=== PATIENT | female | born 1995 | race Two or more races ===

== ENCOUNTER 2024-10-02 00:56 | Emergency (ER) | payer OTHER ==
[~2024-10-02] VITALS: Ht 162.6 cm; Wt 92.7 kg
--- NOTE | 2024-10-02 01:13 | ED.PDOC ---
BUTT TRIMMER HPI Comments 29-year-old female who came to ER for vaginal bleeding. Patient is a , delivered full term via vaginal delivery last September 17. No complications noted. Patient was apparently well until 2 hours prior to arrival, when she had an episode of profuse vaginal bleeding with clots, associated with the abdominal cramping, followed by generalized weakness and dizziness. 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 Family History Family History: Reviewed,noncontributory to illness Social History Smoker: Non-Smoker Alcohol: Denies ETOH Use Drugs: Denies Drug Use Lives In: Home Constitutional: denies: chills, diaphoresis, fatigue, fever, malaise, sweats, weakness, others EENTM: denies: blurred vision, double vision, ear bleeding, ear discharge, ear drainage, ear pain, ear ringing, eye pain, eye redness, hearing loss, mouth pain, mouth swelling, nasal discharge, nose bleeding, nose congestion, nose pain, photophobia, tearing, throat pain, throat swelling, voice changes, others Respiratory: denies: cough, hemoptysis, orthopnea, SOB at rest, shortness of breath, SOB with excertion, stridor, wheezing, others Cardiovascular: denies: chest pain, dizzy spells, diaphoresis, Dyspnea on exertion, edema, irregular heart beat, left arm pain, lightheadedness, palpitations, PND, syncope, others Gastrointestinal: reports: abdominal pain; denies: abdomen distended, blood streaked bowels, constipated, diarrhea, dysphagia, difficulty swallowing, hematemesis, melena, nausea, poor appetite, poor fluid intake, rectal bleeding, rectal pain, vomiting, others Genitourinary: reports: abnormal vagina bleeding; denies: burning, dyspareunia, dysuria, flank pain, frequency, hematuria, incontinence, pain, , vagina discharge, urgency, others Neurological: reports: dizziness, weakness; denies: fainting, headache, left sided numbness, left sided weakness, numbness, paresthesia, pre-existing deficit, right sided numbness, right sided weakness, seizure, speech problems, tingling, tremors, others Musculoskeletal: denies: back pain, gout, joint pain, joint swelling, muscle pain, muscle stiffness, neck pain, others Integumetry: denies: bruises, change in color, change in hair/nails, dryness, laceration, lesions, lumps, rash, wounds, others Allergic/Immunocompromised: denies: Difficulty Healing, Frequent Infections, Hives, Itching, others Hematologic/Lymphatic: denies: anemia, blood clots, easy bleeding, easy bruising, swollen glands, others Endocrine: denies: excessive hunger, excessive sweating, excessive thirst, excessive urination, flushing, intolerance to cold, intolerance to heat, unexplained weight gain, unexplained weight loss, others Psychiatric: denies: anxiety, bipolar disorder, depression, hopeless, panic disorder, schizophrenia, sleepless, suicidal, others Physical Exam General Appearance: No Apparent Distress, Normal HEENT: Normal ENT Inspection, Pharynx Normal, TMs Normal Neck: Full Range of Motion, Non-Tender, Normal, Normal Inspection Respiratory: Chest Non-Tender, Lungs Clear, No Accessory Muscle Use, No Respiratory Distress, Normal Breath Sounds Cardiovascular: No Edema, No JVD, No Murmur, No Gallop, Normal Peripheral Pulses, Regular Rate/Rhythm Breast Exam: Deferred Gastrointestinal: No Organomegaly, Non Tender, No Pulsatile Mass, Normal Bowel Sounds, Soft Genitalia: Deferred Pelvic: Deferred Rectal: Deferred Extremities: No calf tenderness, Normal capillary refill, Normal inspection, Normal range of motion, Non-tender, No pedal edema Musculoskeletal : Apperance: Normal Neurologic: Alert, school psychologist assistant II-XII nml as Tested, No Motor Deficits, Normal Affect, Normal Mood, No Sensory Deficits Cerebellar Function: Normal Reflexes: Normal Skin: Dry, Normal Color, Warm Lymphatic: No Adenopathy Was a procedure done? Was a procedure done?: No Differential Diagnosis (HOGSHEAD HEAD MATCHER) Vaginal Bleeding: Blood Loss Anemia, Menorrhagia, Menometrorrhagia, Menstrual Bleeding, UTI X-Ray, Labs, Meds, VS Vital Signs Date Time Temp Pulse Resp B/P (MAP) Pulse Ox O2 Delivery O2 Flow Rate FiO2 10/02/24 02:02 98.0 63 20 126/77 (93) 98 98.0 10/02/24 01:12 97.8 92 20 145/101 97 97.8 Lab Test 10/02/24 01:53 Range/Units White Blood Count 7.1 4.4-10.8 10^3/uL Red Blood Count 4.52 4.0-5.20 10^6/uL Hemoglobin 11.4 L 12.2-16.2 g/dL Hematocrit 35.3 L 36.0-46.0 % Mean Corpuscular Volume 78.2 L 80.0-100.0 fL Mean Corpuscular Hemoglobin 25.3 L 28.0-32.0 pg Mean Corpuscular Hemoglobin Concent 32.4 32.0-36.0 g/dL Red Cell Distribution Width 16.0 H 11.8-14.3 % Platelet Count 254 140-450 10^3/uL Mean Platelet Volume 10.2 6.9-10.8 fL Neutrophils (%) (Auto) 57.2 37.0-80.0 % Lymphocytes (%) (Auto) 34.8 10.0-50.0 % Monocytes (%) (Auto) 5.8 0.0-12.0 % Eosinophils (%) (Auto) 1.5 0.0-7.0 % Basophils (%) (Auto) 0.7 0.0-2.0 % Neutrophils # (Auto) 4.0 1.6-8.6 10 ^3/uL Lymphocytes # (Auto) 2.5 0.4-5.4 10 ^3/uL Monocytes # (Auto) 0.4 0-1.3 10 ^3/uL Eosinophils # (Auto) 0.1 0-0.8 10 ^3/uL Basophils # (Auto) 0 0-0.2 10 ^3/uL Nucleated Red Blood Cells 0.0 % Prothrombin Time 10.5 9.3-11.8 sec Prothrombin Time INR 0.99 0.9-1.15 Activated Partial Thromboplast Time 27.5 24.5-34.5 SEC Sodium Level 144 136-145 mmol/L Potassium Level 3.7 3.5-5.1 mmol/L Chloride Level 109 H 98-107 mmol/L Carbon Dioxide Level 24 20-31 mmol/L Anion Gap 11 5-15 Blood Urea Nitrogen 12 9-23 mg/dL Creatinine 0.70 0.550-1.02 mg/dL Glomerular Filtration Rate Calc 121 >90 mL/min BUN/Creatinine Ratio 17.1 10.0-20.0 Serum Glucose 130 H 74-106 mg/dL Calcium Level 8.9 8.7-10.4 mg/dL Total Bilirubin 0.2 0.2-1.0 mg/dL Aspartate Amino Transferase (AST) 25 13-40 U/L Alanine Aminotransferase (ALT) 23 7-40 U/L Alkaline Phosphatase 122 H 46-116 U/L Total Protein 6.3 5.7-8.2 g/dL Albumin 4.0 3.2-4.8 g/dL Current Medications Medications (Trade) Dose Ordered Sig/Adalberto Route Start Time Stop Time Status Last Admin Sodium Chloride 500 ml @ 500 mls/hr Q1H ONCE IVB 10/02/24 01:15 10/02/24 02:14 DC 10/02/24 02:06 Acetaminophen (Tylenol Tablet) 650 mg ONCE ONCE PO 10/02/24 03:45 10/02/24 03:46 DC 10/02/24 03:58 Time of 1ST Reevaluation: 01:09 Reevaluation 1ST: Unchanged Patient Education/Counseling: Diagnosis, Treatment Family Education/Counseling: Diagnosis, Treatment Departure 1 Departure Time of Disposition: 05:36 Impression: Primary Impression: bleeding Disposition: 01 HOME / SELF CARE / HOMELESS Condition: Stable Discharged With: Self Comments I reviewed the lab and ultrasound findings. Patient had some fluid in her endometrium on ultrasound. I consulted with senior electrical engineer Dr. Ortiz who reviewed the case and he recommends 1 dose of Cytotec and then discharged home with close follow up with her OBGYN doctor. Patient is agreeable with the plan. Critical Care Note Critical Care Time?: No Stability Stability form required: No Heart Score Heart Score: Heart Score Response (Comments) Value History N/A 0 EKG N/A 0 Age N/A 0 Risk Factors N/A 0 Troponin N/A 0 Total 0 I personally scribed for RUDY TERRAZAS MD ([email or web address]) on 10/02/24 at 01:13. Electronically submitted by Cristhian Soto ([email or web address]). RUDY TERRAZAS MD Oct 02, 2024 01:13
[2024-10-02 02:06] LABS: Hematocrit 35.3 % (36.0-46.0); Hemoglobin 11.4 g/dL (12.2-16.2); Mean Corpuscular Hemoglobin 25.3 pg (28.0-32.0); Mean Corpuscular Volume 78.2 fL (80.0-100.0); Nucleated Red Blood Cells % 0.0 %
[2024-10-02] MEDS: SODIUM CHLORIDE 0.9% 500 ML IVB ONE (02:06)
[2024-10-02 02:17] LABS: Alanine Aminotransferase 23 U/L (7-40); Albumin 4.0 g/dL (3.2-4.8); Anion Gap 11 (5-15); BUN/Creatinine Ratio 17.1 (10.0-20.0); Blood Urea Nitrogen 12 mg/dL (9-23); Calcium 8.9 mg/dL (8.7-10.4); Carbon Dioxide 24 mmol/L (20-31); Potassium 3.7 mmol/L (3.5-5.1); Sodium 144 mmol/L (136-145); Total Protein 6.3 g/dL (5.7-8.2)
[2024-10-02 02:20] LABS: Alkaline Phosphatase 122 U/L (46-116); Bilirubin, Total 0.2 mg/dL (0.2-1.0); Chloride 109 mmol/L (98-107); Glucose 130 mg/dL (74-106)
[2024-10-02 02:32] LABS: INR 0.99 (0.9-1.15); Partial Thromboplastin Time 27.5 SEC (24.5-34.5); Prothrombin Time 10.5 sec (9.3-11.8)
[2024-10-02] MEDS: MORPHINE SULFATE 4 MG/ML SYR/VIAL IV ONE (03:44)
[2024-10-02] MEDS: ACETAMINOPHEN 325 MG TAB PO ONE (03:58)
--- NOTE | 2024-10-02 04:58 | DVH ---
INDICATION: 2 wks post pain and bleeding TECHNIQUE: Multiple real-time grayscale transabdominal sonographic images along with color and duplex Doppler of the uterus and ovaries were obtained. COMPARISON: None FINDINGS: Uterus measures 11.6 x 11 x 10.3 cm. Endometrium measures 8 mm. Possible fluid within the endometri um. multiple subcentimeter echogenic foci seen within the uterus. Bilateral ovaries not well visualized. No free fluid within the cul-de-sac. IMPRESSION: 1. Endometrium measures 8 mm. Possible fluid within the endometrium. multiple subcentimeter echogeni c foci seen within the uterus. 2. Bilateral ovaries are not well visualized.
[2024-10-02] MEDS: IBUPROFEN 400 MG TAB PO ONE (05:53)
[2024-10-02] MEDS ORDERED: MISO100T2 PO (05:53)
[2024-10-02 06:05] VITALS: BP 124/67; PULSE 58; RESP 16; TEMP 98.1; O2SAT 97
== END 2024-10-02 06:05 | disposition home or self-care (01) ==
LOC: ER 00:56
DX: O72.1 Other immediate postpartum hemorrhage (principal); Z79.899 Other long term (current) drug therapy
CPT/HCPCS: 36415; 76856; 80053; 85025; 85610; 85730; 96360; 99284; J7040